=== PATIENT | male | born 1950 | race Caucasian/White ===

== ENCOUNTER 2017-12-07 12:15 | Emergency (ER) | payer OTHER ==
[~2017-12-07] VITALS: Ht 180.3 cm; Wt 77.4 kg
[2017-12-07 12:28] VITALS: TEMP 36.7; Ht 180.3 cm; Wt 77.4 kg
[2017-12-07] MEDS ORDERED: LIDOCAINE/EPINEPH/TETRACAINE 1 EA SYR EXT STA (12:53)
[2017-12-07] MEDS ORDERED: BUPRTAB51 PO (13:25)
[2017-12-07] MEDS ORDERED: LOSA50TA6 PO (13:25)
[2017-12-07] MEDS ORDERED: MIRT15TA2 PO (13:25)
[2017-12-07] MEDS ORDERED: LAMO200T35 PO (13:25)
[2017-12-07] MEDS ORDERED: PRLSR20 PO (13:25)
[2017-12-07] MEDS ORDERED: ALLO100T PO (13:25)
[2017-12-07] MEDS ORDERED: TAMS0.4C38 PO (13:25)
--- NOTE | 2017-12-07 14:15 | DIAGNOSTIC IMAGING REPORT ---
CT SCAN OF THE BRAIN WITHOUT IV CONTRAST CLINICAL HISTORY: Fall with head injury. COMPARISON STUDY: No priors. TECHNIQUE: Unenhanced axial CT scan of the brain is performed from the vertex to the skull base. A dose lowering technique was utilized adhering to the principles of ALARA. CT DOSE: 729.78 mGycm FINDINGS: Brain parenchyma: The brain parenchyma is normal in appearance. There is no hemorrhage, mass effect, or evidence of acute territorial ischemia by CT criteria. Tucker-white matter is preserved. No extra-axial fluid collection is seen. Ventricles, sulci, cisterns: Normal in configuration. Intracranial vasculature: The visualized intracranial vasculature at the skull base is normal in appearance. Calvarium: There is no depressed calvarial fracture. Soft tissues: There is a lipoma in the frontal scalp seen on image #12. A small right supraorbital scalp contusion is identified. Sinuses and mastoids: The visualized paranasal sinuses are clear. The mastoid air cells are well pneumatized. Orbits: The bony orbits are grossly intact. IMPRESSION: No acute intracranial abnormality. Electronically signed by: Marshall Choi M.D. 12/07/2017 2:14 PM Dictated Date/Time: 12/07/2017 2:12 PM
--- NOTE | 2017-12-07 14:40 | EMERGENCY ROOM VISIT NOTE ---
ED Visit Note First contact with patient: 12:34 CHIEF COMPLAINT: Head injury, facial laceration HISTORY OF PRESENT ILLNESS: This 67 yo male patient presented to the emergency department approximately one and a half hours after receiving a head injury when he fell from standing after sliding on ice. The patient states he noticed a wet appearing area on the sidewalk while he was walking the dog, and thought it was likely thawed and water, however when he decided to step directly on it, he slipped and fell. The patient was holding the dog leash, and when he slipped , fell to his right side, striking his head directly against the sidewalk, obtaining a laceration above the right eyebrow. There was no brief loss of consciousness. There has been no vomiting. The patient complains of no neurological symptoms, dizziness, numbness or tingling, nausea, vomiting, severe headache, confusion, or other symptoms. The headache has been very minimal. The patient complains of no neck pain. The patient has taken nothing for the pain. The patient rates the pain as 3/10 and dull. He is not on blood thinners. The patient denies bowel or bladder dysfunction. The patient denies any other injuries. 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 REVIEW OF SYSTEMS: A 10 system review of systems was performed with positives and pertinent negatives listed in the history of present illness. All other systems were reviewed and are negative. ALLERGIES: None MEDICATIONS: None PMH: None SOCIAL HISTORY: The patient lives out of town, but is here locally visiting his daughter. He denies drug, alcohol, tobacco use. PHYSICAL EXAM: Vital Signs: Reviewed Nurse's notes, vital signs stable. GENERAL : This is a 67 year old white male, in no acute distress, well-developed, well- nourished. NEURO: The patient is alert, oriented to person place and time, and coherent. Normal mini mental status exam. Negative Romberg and pronator drift. Cerebellar function intact. HEAD: Normocephalic. There is a contusion, swelling, and laceration in the supraorbital area superior to the lateral right eye. EYES: Pupils are equal round and reactive to light and accommodation. EOMs are full and optic discs and fundi are normal. There is no swelling or discoloration of the tissue surrounding the eyes, with the exception of around the laceration. EARS: External auditory canals clear without blood. NOSE: Patent without tenderness. No septal hematoma. FACE: No facial bone tenderness. NECK: Supple. There is no cervical spine tenderness. The patient does not have tenderness with movement of the neck. SKIN: There is a 1.5 cm laceration on the lateral aspect of the supraorbital area, superior to the right eye. There are 2 <0.5cm long lacerations just lateral to the larger laceration. The edges gape apart with traction. There is minimal active bleeding and no foreign material in the wound. There are no deep structures present. Capillary refill less than two seconds. Normal sensation to light and sharp touch. RADIOLOGY: CT SCAN OF THE BRAIN WITHOUT IV CONTRAST CLINICAL HISTORY: Fall with head injury. COMPARISON STUDY: No priors. TECHNIQUE: Unenhanced axial CT scan of the brain is performed from the vertex to the skull base. A dose lowering technique was utilized adhering to the principles of ALARA. CT DOSE: 729.78 mGycm FINDINGS: Brain parenchyma: The brain parenchyma is normal in appearance. There is no hemorrhage, mass effect, or evidence of acute territorial ischemia by CT criteria. Tucker-white matter is preserved. No extra-axial fluid collection is seen. Ventricles, sulci, cisterns: Normal in configuration. Intracranial vasculature: The visualized intracranial vasculature at the skull base is normal in appearance. Calvarium: There is no depressed calvarial fracture. Soft tissues: There is a lipoma in the frontal scalp seen on image #12. A small right supraorbital scalp contusion is identified. Sinuses and mastoids: The visualized paranasal sinuses are clear. The mastoid air cells are well pneumatized. Orbits: The bony orbits are grossly intact. IMPRESSION: No acute intracranial abnormality. Electronically signed by: Marshall Choi M.D. 12/07/2017 2:14 PM Dictated Date/Time: 12/07/2017 2:12 PM ED COURSE: I examined the patient. 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 I discussed the patient common scales used to determine the need for CT scan, including [place] CT rule and the CHIP prediction rule, and the patient does not meet criteria to be judged based on these rules due to the mechanism of injury and lack of neurological symptoms. Despite the lack of concerning symptoms or risk factors for intracranial hemorrhage and/or skull fracture, the patient was scanned at his request, after discussing risks vs. benefits of scanning. CT scan was reviewed by myself and radiologist as no acute intracranial abnormality or bony fracture. There was a small lipoma noted on the forehead. Verbal consent was obtained to perform the procedure. LET gel was applied to the wound and allowed to sit for approximately 45 minutes. The patient was successfully anesthetized. Using sterile technique, the wound was copiously irrigated under pressure with sterile saline. The wound was sterilely draped and cleansed with betadine. The wound was explored and was as described above. The lacerations was repaired using 5 total simple interrupted 6-0 nylon sutures with the wound edges being well approximated - 3 sutures over the largest laceration, 1 suture in each of the smaller lacerations. The patient tolerated the procedure well. Hemostasis was achieved. The area was cleaned with sterile saline and dressed with bacitracin ointment. Discharge instructions reviewed. I did discuss the case with Dr. Singleton. He did see and evaluate the patient. The patient was discharged home in good condition ambulatory. I attest that I have personally reviewed the patient's current medication list. Patient was found to have normal blood pressure on screening and does not require follow-up. Etiologies such as concussion, laceration, skull fracture, migraine, tumor, headache, sinus thrombosis, temporal arteritis, sinusitis, CVA, ICH, SAH, infection, as well as others were entertained. DIAGNOSIS: Head injury Current/Historical Medications Scheduled Allopurinol (Zyloprim), 200 MG PO QAM Bupropion (Wellbutrin-Xl), 300 MG PO QAM Lamotrigine (Lamictal), Unknown Dose PO QAM Losartan Potassium (Cozaar), 50 MG PO QAM Mirtazapine Soltab (Remeron Soltab), 15 MG PO HS Omeprazole (Prilosec), 40 MG PO QAM Tamsulosin Hcl (Flomax), 0.4 MG PO HS Allergies Coded Allergies: Codeine (Unverified Allergy, Unknown, bad dreams , 12/07/17) Erythromycin (Unverified Allergy, Unknown, hives, 12/07/17) Morphine (Unverified Allergy, Unknown, hives, 12/07/17) Vancomycin (Unverified Allergy, Unknown, hives, 12/07/17) Vital Signs Date Time Temp Pulse Resp B/P (MAP) Pulse Ox O2 Delivery O2 Flow Rate FiO2 12/07/17 12:28 36.7 88 18 135/78 97 Room Air Medications Administered Medications (Trade) Dose Ordered Sig/Smooth Route Start Time Stop Time Status Last Admin Dose Admin Tetracaine/ Epinephrine/ Lidocaine (L.e.t. Gel 4%/ 1:100/0.5%) 1 ea UD STAT EXT 12/07/17 12:53 12/07/17 12:54 DC 12/07/17 13:05 1 EA Departure Information Impression Primary Impression: Head injury Additional Impressions: Facial laceration Fall on same level Dispostion Home / Self-Care Condition GOOD Referrals No Doctor, Assigned (PCP) Patient Instructions ED Head Injury Closed, ED Laceration Facial Sutr Tape, metraTec Additional Instructions You have received 5 sutures on your face. These sutures are NOT dissolvable and WILL need to be removed by a health care provider in 4-6 days. You can return to the Emergency Department or contact your Primary Care Provider to have the sutures removed. CT Scan of your head/brain demonstrated no acute bleeding or other abnormalities. This does not completely rule out the risk for future damage to the brain. Proper wound care is essential for adequate wound healing and infection prevention. You can shower and clean the wound with soap and water. Do not scour over the wound, pat dry with a towel. Do not submerse the wound (i.e. bathe or dish wash) until the sutures have been removed. You can use an antibiotic ointment with a dressing over the wound for the next 3-4 days. After this time you may leave the wound dry and open to the air. If crust develops over the wound you can use a Q-tip to apply a 1:1 peroxide:water solution to clean the wound. CT scan did show a lipoma on the frontal scalp. This is benign. Look for signs of infection of the wound including: increased pain, swelling, foul discharge, streaking, or increased temperature. If any of these are noticed you should return to the Emergency Department for further assessment and treatment. As with any laceration you may have received nerve damage to the surrounding tissues. This damage may or may not be permanent. You should keep the area covered with sunscreen for the first 6 months to 1 year when at risk for exposure to help minimize scarring. You can also use scar reducing creams or Vitamin E oil to help minimize scarring. For pain control, you can use the following [id number] medicines (if >12 yo): Ibuprofen(Motrin, Advil) may be used for fever or pain. Use 600mg every six hours as needed. Take with food. Avoid using more than 2400mg in a 24 hour period. Do not use 2400mg per day for more than three consecutive days without physician direction. Prolonged inappropriate use can lead to stomach upset or ulcers. (AND/OR) Acetaminophen(Tylenol) may be used for fever or pain. Use 1000mg every six hours as needed. Avoid using more than 3000mg in a 24 hour period. You should relax in a quiet, dark place for the rest of the day. Avoid any possible triggers including: cigarette smoke, caffeine, nicotine, chocolate, wine, beer, loud noises or music, or bright lights. Return to the emergency department if your symptoms worsen despite treatment course outlined above. Problem Qualifiers Primary Impression: Head injury Encounter type: initial encounter Qualified Codes: S09.90XA - Unspecified injury of head, initial encounter Additional Impressions: Facial laceration Encounter type: initial encounter Qualified Codes: S01.81XA - Laceration without foreign body of other part of head, initial encounter Fall on same level Encounter type: initial encounter Qualified Codes: W18.30XA - Fall on same level, unspecified, initial encounter
--- NOTE | 2017-12-07 14:49 | EMERGENCY ROOM VISIT NOTE ---
ED Visit Note First contact with patient: 12:34 The patient was seen and examined with Dacia Herrera PA-C. I agree with the history, physical and findings. Please see the note for disposition and details.
[2017-12-07 15:30] VITALS: BP 131/77; PULSE 78; O2SAT 98
== END 2017-12-07 15:33 | disposition home or self-care (01) ==
LOC: C.EDB 12:16 → C.EDD 15:33
DX: S01.81XA Laceration without foreign body of other part of head, initial encounter (principal); S09.90XA Unspecified injury of head, initial encounter; W01.0XXA Fall on same level from slipping, tripping and stumbling without subsequent striking against object, initial encounter; Z79.899 Other long term (current) drug therapy; Z88.3 Allergy status to other anti-infective agents; Z88.5 Allergy status to narcotic agent

== ENCOUNTER 2017-12-13 13:23 | Emergency (ER) | payer OTHER ==
[~2017-12-13] VITALS: Ht 180.3 cm; Wt 76.2 kg
[~2017-12-13 13:23] MED LIST: ALLO100T PO; BUPRTAB51 PO; LAMO200T35 PO; LOSA50TA6 PO; MIRT15TA2 PO; PRLSR20 PO; TAMS0.4C38 PO
[2017-12-13 13:28] VITALS: Ht 180.3 cm; Wt 76.2 kg
[2017-12-13 13:42] VITALS: BP 124/81; PULSE 87; TEMP 36.6; O2SAT 99
--- NOTE | 2017-12-13 16:52 | EMERGENCY ROOM VISIT NOTE ---
ED Visit Note First contact with patient: 13:31 CHIEF COMPLAINT: Suture removal. HISTORY OF PRESENT ILLNESS: Mr. Jerome is a 67-year-old white male who ambulates into the ED requesting suture removal for a right eyebrow laceration he sustained 6 days ago. He reports there has been no pain, swelling, redness, or drainage from the wound and he feels like the laceration is healing well. PHYSICAL EXAM: Vital Signs: Date Time Temp Pulse Resp B/P (MAP) Pulse Ox O2 Delivery O2 Flow Rate FiO2 12/13/17 13:42 36.6 87 18 99 12/13/17 13:28 36.6 87 18 124/81 99 Room Air General: 67-year-old white male in no acute distress, nontoxic-appearing, afebrile and hemodynamically stable. Neurological: Awake, alert and oriented 3. Answering questions appropriately and following commands. Face: Clean dry and intact wound on the lateral border of the right eyebrow without signs of infection (erythema, swelling, tenderness, purulent drainage). ED COURSE: Patient is assessed as noted above. 4 sutures were removed without any difficulty and there was no separation of the wound edges. Patient was educated about today's findings and instructed on his treatment plan ; he verbalized understanding and agreement with this plan. DISPOSITION: Patient discharged home in stable condition. CLINICAL IMPRESSION: Suture removal; Well healing laceration. PLAN: Patient was encouraged to continue use current wound care instructions and watch for signs of infection. Patient is encouraged return ED for any signs of infection or any new/ concerning symptoms.
== END 2017-12-13 13:43 | disposition home or self-care (01) ==
LOC: C.EDB 13:24 → C.EDD 13:43
DX: S01.111D Laceration without foreign body of right eyelid and periocular area, subsequent encounter (principal); X58.XXXD Exposure to other specified factors, subsequent encounter